=== PATIENT | female | born 1985 | race Two or more races ===

== ENCOUNTER 2021-04-30 17:25 | Emergency (ER) | payer SELFPAY ==
[~2021-04-30] VITALS: Ht 165.1 cm; Wt 86.3 kg
[2021-04-30 18:24] LABS: BASO # 0.1 x10^3/uL (0.0-0.2); BASO % 1 % (0-3); EOS % 0 % (0-3); HEMATOCRIT 42.2 % (36.0-47.0); HEMOGLOBIN 14.4 g/dL (12.0-15.5); LYMPH # 2.2 x10^3/uL (1.0-4.8); LYMPH % 24 % (24-48); MEAN CORPUSCULAR HEMOGLOBIN 28 pg (25-35); MEAN CORPUSCULAR HGB CONC 34 g/dL (31-37); MEAN CORPUSCULAR VOLUME 83 fL (79-100); MONO # 0.6 x10^3/uL (0.0-1.1); MONO % 7 % (0-9); NEUT # 6.3 x10^3/uL (1.8-7.7); NEUT % 68 % (31-73); PLATELET COUNT 288 x10^3/uL (140-400); RED BLOOD COUNT 5.07 x10^6/uL (3.50-5.40); RED CELL DISTRIBUTION WIDTH 14.5 % (11.5-14.5); WHITE BLOOD COUNT 9.3 x10^3/uL (4.0-11.0)
[2021-04-30 18:30] LABS: BILIRUBIN,URINE NEGATIVE (NEG); CLARITY,URINE CLEAR; COLOR,URINE YELLOW; NITRITE,URINE NEGATIVE (NEG); PH,URINE 5.5 (<5.0-8.0); PROTEIN,URINE NEGATIVE (NEG-TRACE); UROBILINOGEN,URINE 0.2 mg/dL (0.2 mg/dL)
[2021-04-30 18:36] LABS: CALCIUM 8.9 mg/dL (8.5-10.1); CREATININE 0.6 mg/dL (0.6-1.0); GFR 112.5; POTASSIUM 3.5 mmol/L (3.5-5.1)
[2021-04-30 18:42] LABS: ALBUMIN 3.8 g/dL (3.4-5.0); ALBUMIN/GLOBULIN RATIO 0.9 (1.0-1.7); MAGNESIUM 2.1 mg/dL (1.8-2.4); TOTAL BILIRUBIN 0.4 mg/dL (0.2-1.0); TOTAL PROTEIN 7.9 g/dL (6.4-8.2)
[2021-04-30 18:45] LABS: BACTERIA,URINE 0 /HPF (0-FEW); RBC,URINE 0 /HPF (0-2)
[2021-04-30 18:54] LABS: U PREG PATIENT POSITIVE (NEG)
--- NOTE | 2021-04-30 18:56 | PHYS DOC ---
Past Medical History Past Medical History: Hypertension Past Surgical History: No Surgical History Smoking Status: Never Smoker Alcohol Use: None General Adult EDM: Chief Complaint: HYPERTENSION HPI: HPI: Patient is a 35 year old female who is speaking, presented to ER from [facility] due to elevated blood pressure. Patient complained of headache, no chest pain, no abdominal pain, no nausea or vomiting. Patient denies any diarrhea, no cough, no fever. Patient states he has history of hypertension in the past, she had not taken any medication for 6 months. Patient is not sure what the name of the medications he was taking for her blood pressure. Patient went to the [facility] today because of the headache, they checked her blood pressure and it was elevated so they sent her here for evaluation. Patient claimed that she did test is positive for last week and again today. Patient denies any pelvic pain, no vaginal bleeding or discharge. Patient says this is her fourth , her last menstrual period was on 03/12/2021. Review of Systems: Review of Systems: Constitutional: Denies fever or chills. [] Eyes: Denies change in visual acuity. [] HENT: Denies nasal congestion or sore throat. [] Respiratory: Denies cough or shortness of breath. [] Cardiovascular: Denies chest pain or edema. [] GI: Denies abdominal pain, nausea, vomiting, bloody stools or diarrhea. [] : Denies dysuria. No pelvic pain, no vaginal bleeding or discharge Musculoskeletal: Denies back pain or joint pain. [] Integument: Denies rash. [] Neurologic: Positive for headache, no focal weakness or sensory changes Endocrine: Denies polyuria or polydipsia. [] Lymphatic: Denies swollen glands. [] Psychiatric: Denies depression or anxiety. [] Heart Score: C/O Chest Pain: N/A Risk Factors: Risk Factors: DM, Current or recent (<one month) smoker, HTN, HLP, family history of CAD, obesity. Risk Scores: Score 0 - 3: 2.5% MACE over next 6 weeks - Discharge Home Score 4 - 6: 20.3% MACE over next 6 weeks - Admit for Clinical Observation Score 7 - 10: 72.7% MACE over next 6 weeks - Early Invasive Strategies Current Medications: Current Medications Medications (Trade) Dose Ordered Sig/Clay Start Time Stop Time Status Last Admin Dose Admin Labetalol HCl (Normodyne Iv Push) 20 mg 1X ONCE 04/30/21 19:00 04/30/21 19:01 Allergies: Allergies: Allergies Coded Allergies Type Severity Reaction Last Updated Verified No Known Drug Allergies 04/30/21 No Physical Exam: PE: Constitutional: Well developed, well nourished, no acute distress, non-toxic appearance. [] HENT: Normocephalic, atraumatic, bilateral external ears normal, oropharynx moist, no oral exudates, nose normal. [] Eyes: PERRLA, EOMI, conjunctiva normal, no discharge. [] Neck: Normal range of motion, no tenderness, supple, no stridor. [] Cardiovascular:Heart rate regular rhythm, no murmur [] Lungs & Thorax: Bilateral breath sounds clear to auscultation [] Abdomen: Bowel sounds normal, soft, no tenderness, no masses, no pulsatile masses. [] Skin: Warm, dry, no erythema, no rash. [] Back: No tenderness, no CVA tenderness. [] Extremities: No tenderness, no cyanosis, no clubbing, ROM intact, no edema. [] Neurologic: Alert and oriented X 3, normal motor function, normal sensory function, no focal deficits noted. [] Psychologic: Affect normal, judgement normal, mood normal. [] Current Patient Data: Labs: Laboratory Tests Test 04/30/21 18:05 04/30/21 18:20 White Blood Count 9.3 x10^3/uL (4.0-11.0) Red Blood Count 5.07 x10^6/uL (3.50-5.40) Hemoglobin 14.4 g/dL (12.0-15.5) Hematocrit 42.2 % (36.0-47.0) Mean Corpuscular Volume 83 fL (79-100) Mean Corpuscular Hemoglobin 28 pg (25-35) Mean Corpuscular Hemoglobin Concent 34 g/dL (31-37) Red Cell Distribution Width 14.5 % (11.5-14.5) Platelet Count 288 x10^3/uL (140-400) Neutrophils (%) (Auto) 68 % (31-73) Lymphocytes (%) (Auto) 24 % (24-48) Monocytes (%) (Auto) 7 % (0-9) Eosinophils (%) (Auto) 0 % (0-3) Basophils (%) (Auto) 1 % (0-3) Neutrophils # (Auto) 6.3 x10^3/uL (1.8-7.7) Lymphocytes # (Auto) 2.2 x10^3/uL (1.0-4.8) Monocytes # (Auto) 0.6 x10^3/uL (0.0-1.1) Eosinophils # (Auto) 0.0 x10^3/uL (0.0-0.7) Basophils # (Auto) 0.1 x10^3/uL (0.0-0.2) Sodium Level 139 mmol/L (136-145) Potassium Level 3.5 mmol/L (3.5-5.1) Chloride Level 103 mmol/L (98-107) Carbon Dioxide Level 25 mmol/L (21-32) Anion Gap 11 (6-14) Blood Urea Nitrogen 10 mg/dL (7-20) Creatinine 0.6 mg/dL (0.6-1.0) Estimated GFR (Cockcroft-Gault) 112.5 BUN/Creatinine Ratio 17 (6-20) Glucose Level 91 mg/dL (70-99) Calcium Level 8.9 mg/dL (8.5-10.1) Magnesium Level 2.1 mg/dL (1.8-2.4) Total Bilirubin 0.4 mg/dL (0.2-1.0) Aspartate Amino Transferase (AST) 15 U/L (15-37) Alanine Aminotransferase (ALT) 26 U/L (14-59) Alkaline Phosphatase 70 U/L (46-116) Troponin I Quantitative < 0.017 ng/mL (0.000-0.055) EP-Vxt-P-Type Natriuretic Peptide 125 pg/mL (0-124) H Total Protein 7.9 g/dL (6.4-8.2) Albumin 3.8 g/dL (3.4-5.0) Albumin/Globulin Ratio 0.9 (1.0-1.7) L Lipase 157 U/L (73-393) Urine Collection Type Unknown Urine Color Yellow Urine Clarity Clear Urine pH 5.5 (<5.0-8.0) Urine Specific Logan 1.010 (1.000-1.030) Urine Protein Negative mg/dL (NEG-TRACE) Urine Glucose (UA) Negative mg/dL (NEG) Urine Ketones (Stick) Negative mg/dL (NEG) Urine Blood Small (NEG) Urine Nitrite Negative (NEG) Urine Bilirubin Negative (NEG) Urine Urobilinogen Dipstick 0.2 mg/dL (0.2 mg/dL) Urine Leukocyte Esterase Negative (NEG) Urine RBC 0 /HPF (0-2) Urine WBC 1-4 /HPF (0-4) Urine Squamous Epithelial Cells Mod /LPF Urine Renal Epithelial Cells Occ /LPF Urine Bacteria 0 /HPF (0-FEW) Urine Test Positive (NEG) Laboratory Tests 04/30/21 18:05 Laboratory Tests 04/30/21 18:05 Vital Signs: Vital Signs Date Time Temp Pulse Resp B/P (MAP) Pulse Ox O2 Delivery O2 Flow Rate FiO2 04/30/21 17:55 98.5 83 16 223/109 (147) 99 Room Air 98.5 EKG: EKG: EKG was done at 1754, heart rate of 75 bpm, sinus rhythm, no ST segment elevation. Radiology/Procedures: Radiology/Procedures: [facility] [address] [place] [address] IMAGING REPORT Signed PATIENT: BOAZ ZHANG ACCOUNT: [id number] : 1985 LOCATION: ER AGE: 35 SEX: F EXAM STATUS: REG ER ORD. PHYSICIAN: DALE MEHTA DO REASON: headache, PROCEDURE: CT HEAD WO CONTRAST EXAM: CT HEAD WITHOUT CONTRAST. HISTORY: Headache, . TECHNIQUE: Computed tomography of the head was performed without intravenous contrast. One or more of the following individualized dose reduction techniques were utilized for this examination: 1. Automated exposure control. 2. Adjustment of the mA and/or kV according to patient size. 3. Use of iterative reconstruction technique. COMPARISON: None. FINDINGS: There is no intracranial hemorrhage. Ulrich-white differentiation is preserved. The ventricles are normal in size and position. The visualized paranasal sinuses appear clear. The orbits are unremarkable. The temporal bones are unremarkable. The calvarium reveals no suspicious lesions. IMPRESSION: 1. No acute intracranial findings. Electronically signed by: Marleen Melo MD (04/30/2021 8:23 PM) [facility] DICTATED and SIGNED BY: ALE MELO MD DATE: 04/30/[id number] 0 [facility] [address] [place] [address] IMAGING REPORT Signed PATIENT: BOAZ ZHANG ACCOUNT: [id number] : 1985 LOCATION: ER AGE: 35 SEX: F EXAM STATUS: REG ER ORD. PHYSICIAN: DALE MEHTA DO REASON: , HCG : 50968, HYPERTENSIVE URGENCY, PELVIC CRAMPING PROCEDURE: OB < 14 WKS US OB <14 WKS +TV History: Reason: , HCG : 72416, HYPERTENSIVE URGENCY, PELVIC CRAMPING / Spl. Instructions: / History: Comparison: None. Technique: Grayscale and color Doppler imaging of the pelvis was performed using transabdominal and transvaginal technique. Findings: The uterus measures 8.2 x 6.9 x 5.3 cm. Single intrauterine gestational sac with regular appearance. Yolk sac is identified. pole is identified with crown-rump length 0.54 cm. Estimated gestational age by ultrasound 6 weeks 2 days. heart rate 149 bpm. Small subchorionic hematoma measures 1.0 x 0.6 cm. Estimated date of completion by ultrasound December 22, 2021. Right ovary measures 3.8 x 3.0 x 2.2 cm. Normal Doppler flow to the right ovary. Left ovary not identified due to positioning and overlying structures. IMPRESSION: 1. Single intrauterine with gestational age 6 weeks 2 days and heart rate 149 bpm. 2. Small subchorionic hematoma. Electronically signed by: Smith You DO (04/30/2021 10:09 PM) [facility] DICTATED and SIGNED BY: SMITH YOU DO DATE: 04/30/[id number] 0 Course & Med Decision Making: Course & Med Decision Making Pertinent Labs and Imaging studies reviewed. (See chart for details) Patient is a 35-year-old female who is in her first trimester , presented to ER due to elevated blood pressure. Patient does have a history of hypertension but not on any medication for 6 months. She presented with headache, CT scan of the head did not show any acute problem. Patient was given 20 mg of labetalol IV, her blood pressure improved to 140/65. Pelvic ultrasound shows 6-week 2-day IUP with heart tones of 149. Discussed with the [employer] doctor on-call Dr. Monico You who recommended patient can be discharged home, put her on labetalol 200 mg twice a day, follow-up in the clinic next week.. Dragon Disclaimer: Dragon Disclaimer: This electronic medical record was generated, in whole or in part, using a voice recognition dictation system. Departure Departure Impression: Primary Impression: Hypertension affecting in first trimester Disposition: HOME / SELF CARE / HOMELESS Condition: IMPROVED Referrals: MONICO YOU MD Please call this [employer] doctor in 2 days for follow up. Patient Instructions: Hypertension During Additional Instructions: Follow up with this [employer] physician in [address] Monico You [address] [facility] [place] [address] Thank you for visiting our Emergency Department. We appreciate you trusting us with your care. If any additional problems come up don't hesitate to return to visit us. Please follow up with your primary care provider so they can plan additional care if needed and know about the problem that you had. If symptoms worsen come back to the Emergency Department. Any concerning symptoms that start such as chest pain, shortness of air, weakness or numbness on one side of the body, running high fevers or any other concerning symptoms return to the ER. Scripts Labetalol Hcl (LABETALOL HCL) 200 Mg Tablet 1 TAB PO BID for 30 Days, #60 TAB 1 Refill Prov: DALE MEHTA DO 04/30/21 DALE MEHTA DO Apr 30, 2021 18:56
[2021-04-30] MEDS ORDERED: LABETALOL 20 MG/4 ML DISP.SYRIN. IVP ONE (19:00)
--- NOTE | 2021-04-30 19:01 | EKG ---
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
--- NOTE | 2021-04-30 20:25 | RAD ---
EXAM: CT HEAD WITHOUT CONTRAST. HISTORY: Headache, . TECHNIQUE: Computed tomography of the head was performed without intravenous contrast. One or more of the following individualized dose reduction techniques were utilized for this examination: 1. Automated exposure control. 2. Adjustment of the mA and/or kV according to patient size. 3. Use of iterative reconstruction technique. COMPARISON: None. FINDINGS: There is no intracranial hemorrhage. Ulrich-white differentiation is preserved. The ventricle s are normal in size and position. The visualized paranasal sinuses appear clear. The orbits are unremarkable. The temporal bones are un remarkable. The calvarium reveals no suspicious lesions. IMPRESSION: 1. No acute intracranial findings. Electronically signed by: Marleen Melo MD (04/30/2021 8:23 PM) [facility]
--- NOTE | 2021-04-30 22:11 | RAD ---
US OB <14 WKS +TV History: Reason: , HCG : 18784, HYPERTENSIVE URGENCY, PELVIC CRAMPING / Spl. Instructions: / History: Comparison: None. Technique: Grayscale and color Doppler imaging of the pelvis was performed using transabdominal and t ransvaginal technique. Findings: The uterus measures 8.2 x 6.9 x 5.3 cm. Single intrauterine gestational sac with regular appearance. Yolk sac is identified. pole is id entified with crown-rump length 0.54 cm. Estimated gestational age by ultrasound 6 weeks 2 days. Feta l heart rate 149 bpm. Small subchorionic hematoma measures 1.0 x 0.6 cm. Estimated date of completion by ultrasound December 22, 2021. Right ovary measures 3.8 x 3.0 x 2.2 cm. Normal Doppler flow to the right ovary. Left ovary not identified due to positioning and overlying structures. IMPRESSION: 1. Single intrauterine with gestational age 6 weeks 2 days and heart rate 149 bpm. 2. Small subchorionic hematoma. Electronically signed by: Smith You DO (04/30/2021 10:09 PM) [facility]
[2021-04-30] MEDS ORDERED: LABE200T4 PO (22:33)
[2021-04-30 22:35] VITALS: BP 187/79
== END 2021-04-30 22:47 | disposition home or self-care (01) ==
LOC: ER 17:25
DX: O16.1 Unspecified maternal hypertension, first trimester (principal); R51.9 Headache, unspecified; Z3A.01 Less than 8 weeks gestation of pregnancy
CPT/HCPCS: 36415; 70450; 76801; 80053; 81001; 81025; 83690; 83735; 83880; 84484; 84702; 85025; 93005; 96374; 99285; J3490